=== PATIENT | female | born 1945 | race Caucasian/White ===

== ENCOUNTER → 2017-06-16 | Day surgery (SDC) | payer MEDICARE | LOC: CACL 09:35 | PROVIDERS: ATTEND Internal Medicine Cardiovascular Disease | DX: Z02.9 Encounter for administrative examinations, unspecified (principal) ==

== ENCOUNTER 2017-07-09 07:02 | Observation (INO) | payer MEDICARE ==
[2017-07-07 14:36] VITALS: BP 111/60
[~2017-07-09] VITALS: Ht 165.1 cm; Wt 81.8 kg
[~2017-07-09 07:02] MED LIST: AMIT25TA PO; APIX5TAB PO; ATOR10TA PO; CARV3.1212 PO; CARV6.2512 PO; FLEC100T PO; FLUO10CA13 PO
[2017-07-09] MEDS ORDERED: SODIUM CHLORIDE 0.9% 1,000 ML IV SCH ×2 (07:14→07:30)
[2017-07-09] MEDS ORDERED: HEPARIN 1,000 UNITS/ML, 10ML ONE (07:52)
[2017-07-09] MEDS ORDERED: PROTAMINE SULFATE 10 MG/ML, 5ML ONE (07:52)
[2017-07-09] MEDS ORDERED: LIDOCAINE 2%, 20ML ONE (07:52)
[2017-07-09] MEDS ORDERED: MIDAZOLAM 1 MG/ML, 2ML ONE (08:35)
[2017-07-09] MEDS ORDERED: FENTANYL PF 250 MCG/5ML ONE (08:35)
[2017-07-09] MEDS ORDERED: DEXAMETHASONE 4 MG/ML, 5ML ONE (08:47)
[2017-07-09] MEDS ORDERED: ROCURONIUM 10 MG/ML,10ML ONE (08:47)
[2017-07-09] MEDS ORDERED: SUCCINYLCHOLINE 20 MG/ML, 10ML ONE (08:47)
[2017-07-09] MEDS ORDERED: PROPOFOL 10 MG/ML, 20ML ONE (08:47)
[2017-07-09] MEDS ORDERED: ONDANSETRON 2MG/ML, 2ML ONE (08:47)
[2017-07-09] MEDS ORDERED: ZOLPIDEM 5MG TABLET PO PRN (11:30)
[2017-07-09] MEDS: FLECAINIDE 50MG TABLET PO SCH ×2 (11:30→22:42)
[2017-07-09] MEDS ORDERED: MIDAZOLAM 1 MG/ML, 2ML IV PRN (12:00)
[2017-07-09] MEDS ORDERED: HYDROmorphone 1 MG/ML, 1ML IV PRN (12:00)
[2017-07-09] MEDS ORDERED: FENTANYL PF 100 MCG/2ML IV PRN (12:00)
[2017-07-09] MEDS ORDERED: ALBUTEROL SULFATE 2.5 MG/3 ML NPPB PRN (12:00)
[2017-07-09] MEDS ORDERED: ONDANSETRON 2MG/ML, 2ML IVPush PRN (12:00)
[2017-07-09] MEDS ORDERED: ACETAMINOPHEN 325 MG TABLET PO PRN (12:00)
[2017-07-09] MEDS ORDERED: OXYcodone 5 MG/5 ML ORAL.SOL UDC PO PRN (12:00)
[2017-07-09] MEDS ORDERED: hydrALAzine 20 MG/ML, 1ML IV PRN (12:00)
[2017-07-09] MEDS ORDERED: PROMETHAZINE 25 MG/ML, 1ML IV PRN (12:00)
[2017-07-09] MEDS ORDERED: MEPERIDINE/PF 25MG/0.5ML IVPush PRN (12:00)
[2017-07-09] MEDS ORDERED: LABETALOL 5MG/ML, 20ML IV PRN (12:00)
[2017-07-09] MEDS: APIXABAN 5 MG TABLET PO SCH ×2 (13:05→22:42)
[2017-07-09 13:39] VITALS: BP 118/76
[2017-07-09 14:00] VITALS: BP 117/68
[2017-07-09] MEDS ORDERED: ATORVASTATIN 10 MG TABLET PO SCH (21:00)
[2017-07-09] MEDS ORDERED: CARVEDILOL 6.25 MG TABLET PO SCH (21:00)
[2017-07-09] MEDS ORDERED: AMITRIPTYLINE 25 MG TABLET PO SCH (21:00)
[2017-07-09 22:40] VITALS: BP 94/58
[2017-07-09] MEDS: ACETAMINOPHEN 325 MG TABLET PO PRN (22:43)
[2017-07-10 02:08] VITALS: BP 99/62
[2017-07-10 06:35] VITALS: BP 103/63
[2017-07-10] MEDS ORDERED: FLEC100T PO (08:02)
[2017-07-10] MEDS ORDERED: ACET325T14 PO (08:02)
[2017-07-10] MEDS ORDERED: CARVEDILOL 3.125 MG TABLET PO SCH (09:00)
[2017-07-10] MEDS: APIXABAN 5 MG TABLET PO SCH (10:18)
[2017-07-10] MEDS: FLECAINIDE 50MG TABLET PO SCH (12:01)
[2017-07-10] MEDS: ACETAMINOPHEN 325 MG TABLET PO PRN (13:01)
[2017-07-10 14:05] VITALS: BP 101/62
[2017-07-11] MEDS ORDERED: FLUOXETINE 10 MG CAP PO SCH (09:00)
== END 2017-07-10 14:00 | disposition home or self-care (01) ==
LOC: CACL 07:02 → ORIP 11:16 → 5SO 13:21
PROVIDERS: ADMIT Internal Medicine Cardiovascular Disease; ATTEND Internal Medicine Cardiovascular Disease
DX: I48.0 Paroxysmal atrial fibrillation (principal); I10 Essential (primary) hypertension; E78.5 Hyperlipidemia, unspecified; Z79.01 Long term (current) use of anticoagulants
CPT/HCPCS: 85347; 93005; 93306; 93312; 93321; 93325; 93613; 93656; 93662; C1730; C1732; C1759; C1766; C1893; C1894; G0378; J0330; J1100; J1644; J2250; J2405; J2704; J2720; J3010; J3490

== ENCOUNTER 2017-09-02 09:00 | Inpatient (IN) | payer MEDICARE ==
[~2017-09-02] VITALS: Ht 165.1 cm; Wt 80.1 kg
[~2017-09-02 09:00] MED LIST changes: +ACET325T14 PO
[2017-09-02 09:23] VITALS: BP 116/75
[2017-09-02] MEDS: SOTALOL 80MG TABLET PO SCH ×2 (10:07→20:44)
[2017-09-02] MEDS: APIXABAN 5 MG TABLET PO SCH ×2 (10:08→20:44)
[2017-09-02 10:56] LABS: ANION GAP 8 mmol/L (5-15); CALCIUM 8.5 mg/dL (8.5-10.1); CHLORIDE 109 mmol/L (98-107); CHOLESTEROL, TOTAL 137 mg/dL (140-239); CREATININE 0.83 mg/dL (0.55-1.02); TRIGLYCERIDES 66 mg/dL (50-200); VLDL CHOLESTEROL 13 mg/dL (0-25)
[2017-09-02 11:00] LABS: CHOL/HDL RATIO 2.4; FREE T4 (FREE THYROXINE) 0.98 ng/dL (0.76-1.46); HDL CHOL % 42 % (28-40); HDL CHOLESTEROL (DIRECT) 58 mg/dL (40-60); LDL CHOLESTEROL,CALCULATED 66 mg/dL (54-169); LDL/HDL RATIO 1.1 (0.5-3.0); TROPONIN I < 0.015 ng/mL (0.000-0.045)
[2017-09-02 11:05] LABS: THYROID STIMULATING HORMONE 0.767 mIU/L (0.358-3.740)
[2017-09-02 14:53] VITALS: BP 97/55
[2017-09-02 16:20] LABS: TROPONIN I < 0.015 ng/mL (0.000-0.045)
[2017-09-02 18:27] VITALS: BP 99/64
[2017-09-02] MEDS: ACETAMINOPHEN 325 MG TABLET PO PRN (18:45)
[2017-09-02] MEDS: SODIUM CHLORIDE FLUSH 10ML SYR IVF SCH (20:43)
[2017-09-02] MEDS: AMITRIPTYLINE 25 MG TABLET PO SCH (20:44)
[2017-09-02] MEDS: ATORVASTATIN 10 MG TABLET PO SCH (20:44)
[2017-09-02] MEDS ORDERED: SODIUM CHLORIDE FLUSH 10ML SYR IVF SCH (21:00)
[2017-09-02 22:22] LABS: TROPONIN I < 0.015 ng/mL (0.000-0.045)
[2017-09-03 01:21] VITALS: BP 98/62
[2017-09-03 07:21] VITALS: BP 99/62
[2017-09-03] MEDS: SODIUM CHLORIDE FLUSH 10ML SYR IVF SCH ×2 (08:48→20:31)
[2017-09-03] MEDS: SOTALOL 80MG TABLET PO SCH ×2 (08:51→20:32)
[2017-09-03] MEDS: APIXABAN 5 MG TABLET PO SCH ×2 (08:51→20:32)
[2017-09-03 14:05] VITALS: BP 103/67
[2017-09-03 18:40] VITALS: BP 102/65
[2017-09-03] MEDS: ATORVASTATIN 10 MG TABLET PO SCH (20:31)
[2017-09-03] MEDS: AMITRIPTYLINE 25 MG TABLET PO SCH (20:32)
[2017-09-04 01:52] VITALS: BP 104/65
[2017-09-04 08:16] VITALS: BP 92/60
[2017-09-04] MEDS: APIXABAN 5 MG TABLET PO SCH (09:03)
[2017-09-04] MEDS: SOTALOL 80MG TABLET PO SCH (09:03)
[2017-09-04] MEDS: SODIUM CHLORIDE FLUSH 10ML SYR IVF SCH (09:03)
[2017-09-04] MEDS ORDERED: SOTA80TA18 PO (10:41)
[2017-09-04 12:00] VITALS: BP 100/61
[2017-09-04] MEDS: ACETAMINOPHEN 325 MG TABLET PO PRN (12:04)
== END 2017-09-04 13:47 | disposition home or self-care (01) | DRG 309 ==
LOC: 5SO 09:00
PROVIDERS: ADMIT Internal Medicine Cardiovascular Disease; ATTEND Internal Medicine Cardiovascular Disease
DX: I48.0 Paroxysmal atrial fibrillation (principal); D68.69 Other thrombophilia; I10 Essential (primary) hypertension; E78.5 Hyperlipidemia, unspecified; Z87.891 Personal history of nicotine dependence
CPT/HCPCS: 36415; 71046; 80048; 80061; 84439; 84443; 84484; 85014; 85018; 93005

== ENCOUNTER → 2017-12-13 | Outpatient (CLI) | payer MEDICARE ==
[~2017-12-13] MED LIST changes: +OMNIPAQUE 350 MG/ML, 100ML BOTTLE ONE; +SOTA80TA PO; +SOTA80TA18 PO
== END | disposition home or self-care (01) ==
LOC: CFH 11:09
PROVIDERS: ATTEND Internal Medicine Cardiovascular Disease
DX: I48.91 Unspecified atrial fibrillation (principal)
CPT/HCPCS: 71046; 75572; Q9967